=== PATIENT | male | born 1945 | race Caucasian/White ===

== ENCOUNTER 2019-11-06 14:57 | Outpatient (CLI) | payer MEDICARE, OTHER ==
--- NOTE | 2019-11-06 15:38 | RAD ---
Left toes 2 views HISTORY: Toe pain. Ulceration. Fungus. FINDINGS: moderate to severe osteoarthritic changes are present at the first metatarsophalangeal join t. Open wound is evident at the dorsal aspect of the toe at the level of the nailbed. No underlying aggr essive osseous erosions. A very thin, curved metallic wire, measuring up to 0.7 cm length, is embedded within the distal tuft soft tissues, significantly inferior/distal to the nailbed and open w ound. IMPRESSION : Large soft tissue wound at the dorsal aspect of the left great toe. No evidence of underlying aggress maynor osseous abnormality. Very thin embedded metallic wire at the distal tuft of the big toe soft tissues. Osteoarthritic changes most pronounced at the first metatarsophalangeal joint.
== END 2019-11-06 14:58 | disposition home or self-care (01) ==
LOC: BICRAD 14:57
PROVIDERS: ATTEND Family Medicine
DX: S99.922A Unspecified injury of left foot, initial encounter (principal); S91.102A Unspecified open wound of left great toe without damage to nail, initial encounter; M19.072 Primary osteoarthritis, left ankle and foot

== ENCOUNTER 2020-10-15 11:08 | Outpatient (CLI) | payer MEDICARE, OTHER | END 2020-10-15 11:09 | disposition home or self-care (01) | LOC: BICRAD 11:08 | PROVIDERS: ATTEND Family Medicine | DX: Z12.2 Encounter for screening for malignant neoplasm of respiratory organs (principal); F17.200 Nicotine dependence, unspecified, uncomplicated | CPT/HCPCS: 71046 ==

== ENCOUNTER 2022-01-27 10:25 | Outpatient (CLI) | payer MEDICARE, OTHER | END 2022-01-27 10:26 | disposition home or self-care (01) | LOC: BICCT 10:25 | PROVIDERS: ATTEND Internal Medicine Critical Care Medicine | DX: Z12.2 Encounter for screening for malignant neoplasm of respiratory organs (principal); Z87.891 Personal history of nicotine dependence; J43.2 Centrilobular emphysema; J92.9 Pleural plaque without asbestos | CPT/HCPCS: 71271 ==

== ENCOUNTER 2023-02-17 08:04 | Outpatient (CLI) | payer MEDICARE, OTHER | END 2023-02-17 08:05 | disposition home or self-care (01) | LOC: BICCT 08:04 | PROVIDERS: ATTEND Internal Medicine Critical Care Medicine | DX: Z12.2 Encounter for screening for malignant neoplasm of respiratory organs (principal); Z87.891 Personal history of nicotine dependence; J43.2 Centrilobular emphysema | CPT/HCPCS: 71271 ==

== ENCOUNTER 2024-02-20 09:30 | Outpatient (CLI) | payer MEDICARE, BC | END 2024-02-20 09:31 | disposition home or self-care (01) | LOC: BICCT 09:30 | PROVIDERS: ATTEND Internal Medicine Critical Care Medicine | DX: Z12.2 Encounter for screening for malignant neoplasm of respiratory organs (principal); Z87.891 Personal history of nicotine dependence | CPT/HCPCS: 71271 ==

== ENCOUNTER 2025-02-19 08:53 | Outpatient (CLI) | payer MEDICARE, BC | END 2025-02-19 08:54 | disposition home or self-care (01) | LOC: BICCT 08:53 | PROVIDERS: ATTEND Internal Medicine Critical Care Medicine | DX: Z12.2 Encounter for screening for malignant neoplasm of respiratory organs (principal); J44.9 Chronic obstructive pulmonary disease, unspecified; Z87.891 Personal history of nicotine dependence | CPT/HCPCS: 71271 ==